=== PATIENT | female | born 1995 | race Caucasian/White ===

== ENCOUNTER 2018-11-07 17:33 | Emergency (ER) | payer SELFPAY, MEDICAID ==
[2018-11-07] MEDS: KETOROLAC 30 MG INJ IM (18:24)
[2018-11-07] MEDS: ONDANSETRON (ODT) 4 MG TAB ODT (18:24)
[2018-11-07] MEDS: ACETAMINOPHEN 325 MG TAB PO (18:24)
== END 2018-11-07 18:43 | disposition home or self-care (01) ==
LOC: FTE 17:33
DX: J06.9 Acute upper respiratory infection, unspecified (principal)
CPT/HCPCS: 81025; 96372; 99284-25